=== PATIENT | female | born 1965 | race African-American/Black ===

== ENCOUNTER 2019-06-02 10:22 | Observation (INO) ==
[2019-06-02] MEDS ORDERED: ASPIRIN PO ONE (10:28)
[2019-06-02 10:53] LABS: BASO# 0.02 X1000 (0.0-0.2); BASO% 0.2 % (0.0-0.8); EOS# 0.12 X1000 (0.0-0.7); HEMATOCRIT 41.1 % (37.0-47.0); HEMOGLOBIN 12.8 g/dL (12.0-16.0); IMM GRAN# 0.02 X1000 (0.0-0.04); IMM GRAN% 0.2 % (0.0-0.5); LYMPH# 4.94 X1000 (1.2-3.4); LYMPH% 41.8 % (20.5-51.1); MCH 25.9 PG (27-31); MCHC 31.1 g/dL (33-37); MONO% 5.1 % (1.7-9.3); MPV 11.9 FL (7.4-10.4); NEUT# 6.11 X1000 (1.4-6.5); NEUT% 51.7 % (42.2-75.2); PLT 302 X1000 (130-400); RBC 4.95 XMIL (4.2-5.4); RDW 13.2 % (11.5-14.5); WBC 11.81 X1000 (4.8-10.8)
[2019-06-02] MEDS ORDERED: LOPRESSOR IV ONE (10:54)
[2019-06-02 11:14] LABS: INR 0.91; PROTIME 12.7 Seconds (11.0-16.0)
[2019-06-02 11:15] LABS: PTT 31.9 Seconds (22.3-41.8)
--- NOTE | 2019-06-02 11:15 | Diag Imaging Result Doc PS360 ---
EXAM: CHEST-2 VIEWS 06/02/2019 HISTORY: cp TECHNIQUE: PA and lateral chest COMMENT: There is no evidence of acute cardiac or pulmonary disease. Compared to 12/21/2017 there has been no significant change. IMPRESSION: No acute disease. Electronically signed by Wesly Amaral 06/02/2019 11:13 AM
[2019-06-02 11:17] LABS: AGAP 15; ALBUMIN 4.6 g/dL (3.5-5.0); ALKALINE PHOSPHATASE 82 U/L (32-104); BUN 9 mg/dL (8-22); CALCIUM 10.3 mg/dL (8.8-10.2); CHLORIDE 101 mmol/L (98-107); COSMO 285; CREATININE 0.6 mg/dL (0.5-0.9); ESTIMATED GFR > 60; GLUCOSE 225 mg/dL (70-104); GOT 35 U/L (10-30); GPT 24 U/L (10-36); POTASSIUM 4.3 mmol/L (3.5-5.1); SODIUM 140 mmol/L (136-145); TCO2 24 mmol/L (25-35); TOTAL PROTEIN 8.6 g/dL (6.3-8.3)
[2019-06-02 11:18] LABS: CK PROFILE 176 U/L (24-173)
--- NOTE | 2019-06-02 11:24 | EKG Report ---
Test Performed on : 06/02/2019 10:37:06 AM Test Reason : cp Blood Pressure : / mmHG Vent. Rate : 133 BPM Atrial Rate : 133 BPM P-R Int : 186 ms QRS Dur : 088 ms QT Int : 352 ms P-R-T Axes : 086 003 -18 degrees QTc Int : 523 ms Sinus tachycardia. Possible Left atrial enlargement ST & T wave abnormality, consider inferior ischemia Abnormal ECG When compared with ECG of 30-MAR-2019 08:56, ST now depressed in Anterolateral leads Unconfirmed Result
[2019-06-02 11:37] LABS: CK-MB 5.31 ng/mL (0.0-5.0)
--- NOTE | 2019-06-02 12:51 | PROVIDER DOCUMENTATION ---
This chart was entered by Alcira Alfred Scribe, acting as scribe for Ander Jackson MD. HPI-Chest Pain - General Chief Complaint: Chest Pain Stated Complaint: CHEST PAIN Time Seen by Provider: 06/02/19 10:51 Source: patient Allergies/Adverse Reactions: Patient Allergies Allergy/AdvReac Type Severity Reaction Status Date / Time No Known Drug Allergies Allergy Unknown Verified 06/02/19 10:27 Home Medications: Home Medication List Medication Instructions Recorded Confirmed Last Taken Type Metformin [Glucophage] 500 mg PO BID 03/16/14 06/02/19 01/22/17 08:00 History Losartan Potassium [Cozaar] 100 mg PO DAILY 12/21/17 06/02/19 Unknown History Amlodipine Besylate 5 mg PO DAILY 06/02/19 06/02/19 Unknown History Glipizide 5 mg PO DAILY 06/02/19 06/02/19 Unknown History ROSUVAstatin [Crestor] 10 mg PO DAILY 06/02/19 06/02/19 Unknown History - History of Present Illness-CP Nature of Presenting Problem: 54 yobf presents to the ed with c/o chest pain, sob acute onset 0230am this morning. pt sts pain has improved buit is still present. pt is nontoxic in appearance Location: reports: other (left anterior) Chest Pain Radiation: reports: no radiation Quality of Pain: reports: tightness Severity in ED: moderate Onset/Duration: this morning (0230) Timing: still present, improving, intermittent Context/Activities at Onset: reports: light activity Modifying Factors: improves with: nothing Associated Symptoms: reports: denies symptoms Nitro Today/Relief: no nitro taken today Aspirin Treatment Today: 325 mg x 1, provided by ED Prior Chest Pain/Cardiac Workup: reports: no prior chest pain Similar Symptoms Previously?: No Recently Seen Here or By Another Healthcare Provider: No Review of Systems - Adult - REVIEW OF SYSTEMS - ADULT Constitutional: denies: chills, fever Eyes: reports: no symptoms reported Ears, Nose, Mouth & Throat: reports: no symptoms reported Cardiovascular: reports: see HPI, chest pain. denies: palpitations, syncope Respiratory: reports: shortness of breath. denies: cough, wheezing Gastrointestinal: denies: diarrhea, nausea, vomiting Genitourinary: reports: no symptoms reported Musculoskeletal: reports: no symptoms reported Integumentary: reports: no symptoms reported Neurological: denies: dizziness/vertigo, headache/migraines Psychiatric: reports: no symptoms reported Endocrine: reports: no symptoms reported Hematologic/Lymphatic: reports: no symptoms reported Allergic/Immunologic: reports: no symptoms reported All Other Systems: Reviewed and Negative Past History - Adult - PAST MEDICAL HISTORY-ADULT Review of Records: reports: Old Records Reviewed, Nursing Assessment Review, Medications Reviewed, Social history reviewed & non-contributory. Major Childhood Illnesses: reports: denies history Cardiovascular: reports: HTN Respiratory: reports: denies history Gastrointestinal: reports: GERD Obstetrical/Gynecological: reports: denies history Genitourinary: reports: denies history Musculoskeletal: reports: denies history Neurological: reports: denies history Psychiatric: reports: denies history Endocrine/Immune: reports: Diabetes Diabetes Type: Type 2 Diabetes controlled by:: PO Meds Other Conditions: reports: denies history - PRIOR SURGERIES/PROCEDURES Surgical/Procedure History: reports: appendectomy, hysterectomy, joint replacement - PRIOR HOSPITALIZATIONS Prior Hospitalizations: reports: none - IMMUNIZATION STATUS Childhood Immunizations: See Nurse Assessment Flu Vaccine: See Nurse Assessment - FAMILY HISTORY Family History: reviewed, not pertinent, CAD over 55 yo - SOCIAL HISTORY Smoking: denies Substance Use: denies Living Situation: family Physical Exam-General - PHYSICAL EXAM-ADULT Initial Vital Signs Reviewed: Yes (BP-162/109 HR-131) - CONSTITUTIONAL General Appearance: appears well, alert, mild distress (cp has improved but still present), obese - EYES Eyes: PERRL/EOMI, pink conjunctivae - HEAD, EARS, NOSE, MOUTH & THROAT HENMT: moist mucous membranes, normal ENT inspection - NECK Neck: non-tender, full range of motion, supple, normal inspection - RESPIRATORY Respiratory: chest non-tender, lungs clear, normal breath sounds - CARDIOVASCULAR Cardiovascular: normal peripheral pulses, tachycardia (131) - CHEST (BREASTS) Chest/Breast: deferred - GASTROINTESTINAL (ABDOMEN) Abdominal Exam: normal bowel sounds, non tender, soft - GENITOURINARY Female Genitalia/Pelvic Exam: deferred Rectal Exam: deferred Hemoccult Exam: deferred - LYMPHATIC Lymphatic: no adenopathy - MUSCULOSKELETAL Back Exam: normal inspection, no CVA tenderness, no vertebral tenderness Extremity: normal range of motion, non-tender, normal gait, normal inspection - SKIN Integumentary: normal color, normal turgor, warm/dry - NEUROLOGIC Neurologic: grossly normal - PSYCHIATRIC Psych/Mental Status: normal mood/affect, normal thought content, normal thought process, oriented x 3 - HEART Score HEART Score: History: Moderately Suspicious HEART Score: ECG: Non-Specific Repolarization Disturbance/LBBB/PM HEART Score: Age: 45-65 Years HEART Score: Risk Factors for Atherosclerotic Disease: 1 or 2 Risk Factors HEART Score: Troponin: < or = Normal Limit Total HEART Score:: 4 Progress - PLAN OF CARE/RESULTS Progress/Plan/Lab Results: Vital Signs - 8 hr 06/02/19 10:24 06/02/19 11:16 06/02/19 11:34 Temperature 97.9 F Pulse Rate 133 H 103 H 98 H Respiratory Rate 18 19 23 Blood Pressure 153/101 142/99 133/93 O2 Sat by Pulse Oximetry 99 99 97 Laboratory Results - last 24 hr 06/02/19 06/02/19 06/02/19 10:41 10:41 10:41 WBC 11.81 H RBC 4.95 Hgb 12.8 Hct 41.1 MCV 83.0 MCH 25.9 L MCHC 31.1 L RDW Std Deviation 13.2 Plt Count 302 MPV 11.9 H Immature Gran % (Auto) 0.2 Neut % (Auto) 51.7 Lymph % (Auto) 41.8 [place] % (Auto) 5.1 Eos % (Auto) 1.0 Baso % (Auto) 0.2 Immature Gran # (Auto) 0.02 Neut # (Auto) 6.11 Lymph # (Auto) 4.94 H [place] # (Auto) 0.60 H Eos # (Auto) 0.12 Baso # (Auto) 0.02 PT INR PTT (Actin FS) D-Dimer, Quantitative Sodium 140 Potassium 4.3 Chloride 101 Carbon Dioxide 24 L Anion Gap 15 BUN 9 Creatinine 0.6 Estimated GFR/1.73 m2 > 60 BUN/Creatinine Ratio 15 Glucose 225 H Calculated Osmolality 285 Calcium 10.3 H Total Bilirubin 0.30 AST 35 H ALT 24 Alkaline Phosphatase 82 Creatine Kinase 176 H Creatine Kinase Index 3.0 H CK-MB (CK-2) 5.31 H Troponin T [id number] Pept 189 Total Protein 8.6 H Albumin 4.6 Globulin 4.0 Albumin/Globulin Ratio 1.0 06/02/19 06/02/19 06/02/19 10:41 10:41 10:41 WBC RBC Hgb Hct MCV MCH MCHC RDW Std Deviation Plt Count MPV Immature Gran % (Auto) Neut % (Auto) Lymph % (Auto) [place] % (Auto) Eos % (Auto) Baso % (Auto) Immature Gran # (Auto) Neut # (Auto) Lymph # (Auto) [place] # (Auto) Eos # (Auto) Baso # (Auto) PT 12.7 INR 0.91 PTT (Actin FS) 31.9 D-Dimer, Quantitative 0.19 Sodium Potassium Chloride Carbon Dioxide Anion Gap BUN Creatinine Estimated GFR/1.73 m2 BUN/Creatinine Ratio Glucose Calculated Osmolality Calcium Total Bilirubin AST ALT Alkaline Phosphatase Creatine Kinase Creatine Kinase Index CK-MB (CK-2) Troponin T 0.016 Rld-[id number]-Hwaqvkixwvc Pept Total Protein Albumin Globulin Albumin/Globulin Ratio Orders Category Date Time Status Cardiac Monitoring DIRECTED Care 06/02/19 10:29 Active Oxygen Therapy- ED Nursing DIRECTED Care 06/02/19 10:29 Active Saline Loc NOW Care 06/02/19 10:29 Active CHEST-2 VIEWS [RAD] Stat Exams 06/02/19 10:29 Completed CBC WITH ELECTRONIC DIFF [HEME] Stat Lab 06/02/19 10:41 Completed CK PROFILE [SP CHEM] Stat Lab 06/02/19 10:41 Completed COMPREHENSIVE METABOLIC PANEL [CHEM] Stat Lab 06/02/19 10:41 Completed D-DIMER [COAG] Stat Lab 06/02/19 10:41 Completed PRO B-NATRIURETIC PEPTIDE Stat Lab 06/02/19 10:41 Completed PROTIME WITH INR [COAG] Stat Lab 06/02/19 10:41 Completed PTT [COAG] Stat Lab 06/02/19 10:41 Completed TROPONIN T Stat Lab 06/02/19 10:41 Completed Aspirin Med 06/02/19 10:28 Discontinued 325 mg PO NOW ONE Metoprolol [Lopressor] Med 06/02/19 10:54 Discontinued 5 mg IV NOW ONE CP/SOB/Palp >45 yrs of Age Stat Oth 06/02/19 10:28 Ordered EKG [EKG] Stat Ther 06/02/19 10:29 Draft Result Diagrams: 06/02/19 10:41 06/02/19 10:41 - REASSESSMENT Reassessment #1 Time Reassessed: 11:22 Status: improving (HR, BP AND CP MUCH BETTER WITH LOPRESSOR 5MG IV.) - EKG 1 Time of EKG reading by physician:: 10:37 EKG Read and Signed by:: Ander Jackson EKG Interpretation (*Must complete 3 of following elements*): Abnormal Rate: 133 Rhythm: sinus tachycardia [place]: normal QRS: other (possible left atrial enlargement) RI Interval: normal Comments: st and t wave abnormality, consider inferior ischemia - XRAY 1 XRAY: Bilateral XRAY Study: Chest Impression: See EMR Report (EXAM: CHEST-2 VIEWS 06/02/2019 HISTORY: cp TECHNIQUE: PA and lateral chest COMMENT: There is no evidence of acute cardiac or pulmonary disease. Compared to 12/21/2017 there has been no significant change. IMPRESSION: No acute disease. Electronically signed by Wesly Amaral 06/02/2019 11:13 AM 06/02/19 1113 Interpreting Physician: Wesly Amaral MD Dictated Date/Time: 06/02/19 1112 cc: Ander Jackson MD; Viky Newberry MD) - CONSULTS/PCP/HOSPITALIST Notification #1 *Consult/PCP/Hospitalist*: DR CARPIO Time Discussed: 12:46 Consult Disposition: Admit Departure - Departure Date of Disposition Decision: 06/02/19 Time of Disposition Decision: 12:46 DIAGNOSIS: Chest pain, HTN (hypertension), Sinus tachycardia, Diabetes Disposition: ADMITTED INPATIENT 09 Certified Medical Emergency: Emergent Condition: Stable Additional Instructions: ED Follow Up Instructions: You have been treated by a care provider in the Emergency Department. These instructions are being provided to you so you can have an understanding of how to care for yourself upon discharge. Upon discharge from the Emergency Department, you are responsible for making arrangements for follow-up care by a physician of your choice. Take all prescribed medications as directed. Return to the Emergency Department immediately for any new or worsening symptoms. You may call the Physician Referral phone number at [phone] to obtain a list of Physicians who are taking new patients. Referrals and Follow-Ups: Viky Newberry MD [Primary Care Provider] - - Critical Care Note This patient required my direct & personal management of CC.: No Attestation - Physician/ MARTY Attestation The physician spent face to face time with patient:: Yes Advanced Practice Provider documentation review:: Supervising physician onsite and consulted in the evaluation and care of this patient. The physician did have a face to face encounter with the patient. This chart was documented by the indicated scribe, (Alcira Alfred Scribe) and accurately reflects the services I performed and decisions made by me, Ander Jackson MD, as attested by the provider's signature.
[2019-06-02 14:50] LABS: CK INDEX 4.2 (0.0-2.5); CK-MB 7.44 ng/mL (0.0-5.0)
[2019-06-02] MEDS ORDERED: ZOFRAN IV PRN (14:53)
[2019-06-02] MEDS ORDERED: TYLENOL PO PRN (14:53)
--- NOTE | 2019-06-02 16:48 | HISTORY AND PHYSICAL ---
PRIMARY CARE PROVIDER: Dr. Viky Newberry. CHIEF COMPLAINT: Chest pressure and shortness of breath. HISTORY OF PRESENT ILLNESS: Ms. 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 She did have a right arm that was aching at that time, diaphoresis but she reports that she has diaphoresis all the time so she was unsure if it was more than her usual. There was some associated nausea, nothing made the pressure or shortness of breath better or worse. It has since resolved, and there was no dizziness. No palpitations. She did report being put on some new medication with Crestor, Norvasc, and vitamin D3 as well as glipizide. Over the past week, workup in the ED showed a troponin of 0.016, and a second troponin of 0.044. CK, CKI and CK-MB are all slightly elevated. The AST is slightly up at 35. We will continue to trend her cardiac enzymes, make her n.p.o. after midnight, set her up for a stress test. Again, she is currently chest pain free. Hold off on her statin given her elevation and liver and CKs. Initiate her on IV fluids. REVIEW OF SYSTEMS: Twelve-point review of systems completely negative except for those mentioned in HPI. PAST MEDICAL HISTORY: 1. Vou-amkiukr-fxmqnxbqz diabetes mellitus orally controlled just started on glipizide. 2. Hypertension, just started on Norvasc. She has been taking Losartan. 3. Hyperlipidemia. It was just started on Crestor a week ago. 4. Vitamin D deficiency just initiated on vitamin D3. PAST SURGICAL HISTORY: 1. Appendectomy. 2. Partial hysterectomy. 3. Tubal ligation. 4. Left knee scope. FAMILY HISTORY: Mother with diabetes. Father from cancer related asbestosis. Sisters with hypertension. SOCIAL HISTORY: She is . She lives with her . 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 No alcohol, tobacco, or illicit drug use. Children are healthy. HOME MEDICATIONS: 1. Losartan. 2. Norvasc. 3. Crestor. 4. Vitamin D3. 5. Metformin. 6. Glipizide. ALLERGIES: No known drug allergies. PHYSICAL EXAMINATION: VITAL SIGNS: Temperature 98 degrees, heart rate 104, respirations 18, blood pressure 144/86, and O2 is 100% on room air. GENERAL: Ms. Christensen is a pleasant 54-year-old female who is lying on the right side in the bed in no acute distress. HEENT: Atraumatic, normocephalic. PERRL. NECK: Supple. Trachea midline. CARDIOVASCULAR: Tachy. S1, S2 appreciated. No murmurs, gallops, or rubs noted. RESPIRATORY: Lung sounds clear bilaterally. GI: Soft, nontender, and nondistended. Positive bowel sounds 4 quadrants. EXTREMITIES: Lower extremities were negative for edema. Bilateral pedal pulses are palpable. NEUROLOGIC: No focal deficits noted. DIAGNOSTICS AND LABORATORY DATA: As per HPI. ASSESSMENT AND PLAN: 1. Chest pain rule out. We will continue to trend her cardiac enzymes. We will check a stress test, echocardiogram, and NPO after midnight. Continue full dose aspirin. 2. Sinus tachycardia. The patient reports she has been asked in the past if her heart rate always ran high. We will continue to monitor. 3. Hypertension. Patient is on losartan, and recently started on Norvasc a week ago. 4. Hyperlipidemia, recently started on Crestor. We will hold that secondary to her elevated AST as well as CK's. 5. Jvt-xmsnzmo-oobznaaut diabetes mellitus. We will hold her oral medications, and place her on sliding scale with pattern blood sugars. 6. Further recommendation to follow physician evaluation, laboratory and diagnostic data. Dictated by PANCHO Sellers for Judson Mckee MD cc: MD Viky Mir
--- NOTE | 2019-06-02 17:16 | EKG Report ---
Test Performed on : 06/02/2019 3:38:21 PM Test Reason : CHEST PAIN Blood Pressure : / mmHG Vent. Rate : 108 BPM Atrial Rate : 108 BPM P-R Int : 136 ms QRS Dur : 090 ms QT Int : 374 ms P-R-T Axes : 033 011 -09 degrees QTc Int : 501 ms Sinus tachycardia. Nonspecific ST and T wave abnormality Abnormal ECG When compared with ECG of 02-JUN-2019 10:37, (Unconfirmed) No significant change was found Confirmed by Jey Acosta MD ([id number]) on 06/03/2019 9:11:54 PM
[2019-06-02] MEDS: HUMALOG (PARKWAY) SUBQ SCH ×2 (18:15→21:54)
[2019-06-02] MEDS: NS 1,000 ML IV SCH (18:15)
--- NOTE | 2019-06-02 19:24 | HISTORY AND PHYSICAL ---
ADDENDUM: Patient seen and examined by myself. Full note dictated and discussed with nurse practitioner. Patient presented to the hospital with chest pain. Notes that she had similar pain a couple years ago. She did have a stress test at that point, everything was negative. She does have diabetes. We are going to admit her to the hospital. Follow her blood sugars, blood pressures, rule out for an ME and will follow. cc: Judson Mckee MD
--- NOTE | 2019-06-02 21:33 | ECHO REPORT ---
ORDER DATE: 06/02/2019 MEASUREMENTS: 1. Septal thickness 1.2. 2. Left ventricular internal diameter in diastole 4.4. 3. Posterior wall thickness 1.2. 4. Aortic root 2.7. 5. Left atrium 4.0. SUMMARY: 1. Technically difficult study due to limited acoustic window quality. 2. Aortic valve is trileaflet and opens normally on 2-dimensional images. Peak gradient across the aortic valve is less than 10 mmHg. Mitral, tricuspid, and pulmonic valves are without evidence of structural abnormality with mild mitral regurgitation. Aortic root is normal in size. 3. Normal left ventricular chamber size with mild concentric left ventricular hypertrophy demonstrated. The estimated left ventricular ejection fraction is approximately 45% in the setting of mild global hypokinesis. Left atrium is mildly enlarged. Right atrium and right ventricle are normal in size with grossly preserved right ventricular systolic function. 4. No pericardial effusion. 5. Appearance of inferior vena cava suggests normal central venous pressure. CONCLUSIONS: 1. Technically difficult study. 2. Mild mitral regurgitation. 3. Mild concentric left ventricular hypertrophy with estimated left ventricular ejection fraction of approximately 45%. 4. Mild left atrial enlargement. cc: Bob Clark MD
--- NOTE | 2019-06-03 05:42 | EKG Report ---
Test Performed on : 06/03/2019 05:31:24 AM Test Reason : cp radiating to right arm Blood Pressure : / mmHG Vent. Rate : 104 BPM Atrial Rate : 104 BPM P-R Int : 134 ms QRS Dur : 090 ms QT Int : 374 ms P-R-T Axes : 053 010 -38 degrees QTc Int : 491 ms Sinus tachycardia. Possible Left atrial enlargement Nonspecific ST and T wave abnormality Abnormal ECG When compared with ECG of 02-JUN-2019 15:38, (Unconfirmed) No significant change was found Confirmed by Jey Acosta MD ([id number]) on 06/03/2019 9:11:42 PM
[2019-06-03 05:48] LABS: BASO# 0.02 X1000 (0.0-0.2); BASO% 0.1 % (0.0-0.8); EOS% 1.4 % (0.0-10.0); HEMATOCRIT 38.8 % (37.0-47.0); HEMOGLOBIN 12.1 g/dL (12.0-16.0); IMM GRAN# 0.02 X1000 (0.0-0.04); IMM GRAN% 0.1 % (0.0-0.5); LYMPH# 6.33 X1000 (1.2-3.4); LYMPH% 45.1 % (20.5-51.1); MCH 25.7 PG (27-31); MCHC 31.2 g/dL (33-37); MCV 82.6 FL (81-99); MONO# 0.84 X1000 (0.11-0.59); MPV 11.9 FL (7.4-10.4); NEUT# 6.64 X1000 (1.4-6.5); NEUT% 47.3 % (42.2-75.2); PLT 306 X1000 (130-400); RDW 13.1 % (11.5-14.5); WBC 14.05 X1000 (4.8-10.8)
[2019-06-03 06:09] LABS: AGAP 12; ALBUMIN 4.1 g/dL (3.5-5.0); ALKALINE PHOSPHATASE 79 U/L (32-104); BUN 9 mg/dL (8-22); CALCIUM 9.7 mg/dL (8.8-10.2); CHLORIDE 102 mmol/L (98-107); CHOLESTEROL 103 mg/dL (0-200); COSMO 279; CREATININE 0.5 mg/dL (0.5-0.9); ESTIMATED GFR > 60; GLUCOSE 218 mg/dL (70-104); GOT 25 U/L (10-30); GPT 18 U/L (10-36); HDL 38 mg/dL (45-65); LDL 40 mg/dL; MAGNESIUM 1.5 mg/dL (1.5-2.7); POTASSIUM 3.9 mmol/L (3.5-5.1); SODIUM 137 mmol/L (136-145); TCO2 23 mmol/L (25-35); TOTAL PROTEIN 7.6 g/dL (6.3-8.3); TRIGLYCERIDES 125 mg/dL (35-135); VLDL 25 mg/dL
[2019-06-03] MEDS: HUMALOG (PARKWAY) SUBQ SCH ×4 (06:09→21:17)
[2019-06-03] MEDS: PRILOSEC PO SCH (06:09)
[2019-06-03] MEDS: NS 1,000 ML IV SCH (06:09)
[2019-06-03 06:21] LABS: HEMOGLOBIN A1C 10.9 % (4.8-6.0)
[2019-06-03] MEDS ORDERED: LEXISCAN ONE (10:00)
[2019-06-03] MEDS: ASPIRIN PO SCH (14:58)
--- NOTE | 2019-06-03 17:09 | Diag Imaging Result Document ---
PROCEDURE NAME: MYOCARDIAL PERF SCAN, STR/REST - 06/03/2019 STUDY: Rest/stress Lexiscan myocardial perfusion study. INDICATION: Chest pain. Abnormal EKG. DESCRIPTION: The patient received a resting injection of technetium 99 sestamibi 12.4 mCi. Multiple tomographic views of the cardiac structures were obtained at rest. Subsequently, the patient underwent Lexiscan infusion of 0.4 mg of Lexiscan infused. At peak infusion, injected with technetium 99 sestamibi 37.5 mCi. Multiple tomographic views of the cardiac structures were obtained following the completion of the protocol. SUMMARY OF THE ELECTROCARDIOGRAPHIC PORTION OF THE STUDY: Resting ECG shows sinus rhythm, rate of 105 beats per minute. Resting blood pressure 129/85. During the protocol, the heart rate increased to 123 beats per minute. Blood pressure went up to 136/86. The resting ECG showed sinus rhythm with sinus tachycardia and a diffuse repolarization abnormality with a downsloping ST segment in inferior leads. Peak infusion ECG showed the same. There was some exaggeration of baseline abnormality. No significant changes. The patient reported no chest pain, shortness of breath, or palpitations. Following the completion of the test, the heart rate and blood pressure returned back to their baseline. In summary, the electrocardiographic response to infusion of Lexiscan is nonspecific/inconclusive due to the presence of baseline abnormality. SUMMARY OF THE MYOCARDIAL PERFUSION PORTION OF THE STUDY: Poststress tomographic views of the left ventricle showed a moderately severe, moderately extensive basal to mid inferolateral defect. The rest images showed that this defect is fixed. Polar plots reveal the same. This is a scintigraphic indication of inferolateral scar of moderate extent. The scar is probably of partial thickness. It is probably worse towards the basal aspect of the inferolateral wall. No ischemia noted. Gated SPECT showed ejection fraction of 38% using the [employer] protocol and 43% using the Myometrix protocol. There is indication of hypokinesis of the inferolateral wall. The volumes are slightly generous. The lung/heart ratio is normal, estimated at 0.38. TID is 1.01. SUMMARY: This study shows: 1. Abnormal resting electrocardiogram with a nonspecific response or inconclusive response to infusion of Lexiscan. 2. Abnormal poststress myocardial perfusion scan. There is scintigraphic evidence of an inferolateral scar of moderate extent, probably of partial thickness. No ischemia noted. 3. Decreased ejection fraction estimated to be in the range of 38% to 43% with impairment of the inferolateral wall. Clinical correlation is recommended. The study suggests increased risk for ischemic events. cc: Glen Portillo MD
[2019-06-04] MEDS: PRILOSEC PO SCH (06:51)
[2019-06-04] MEDS: HUMALOG (PARKWAY) SUBQ SCH ×3 (06:51→17:17)
[2019-06-04] MEDS ORDERED: CRESTOR PO SCH (09:00)
[2019-06-04] MEDS ORDERED: COZAAR PO SCH (09:00)
[2019-06-04] MEDS ORDERED: GLUCOTROL PO SCH (09:00)
--- NOTE | 2019-06-04 09:04 | DISCHARGE SUMMARY ---
ADMISSION DATE: 06/02/2019 DISCHARGE DATE: DISCHARGE ADDENDUM: Patient seen and examined by myself. Full note dictated and discussed with nurse practitioner. Patient presented to the hospital with chest pain and sinus tachycardia as well as hypertension, hyperlipidemia. She has known diabetes. She did have a stress test several years ago. She thankfully ruled out for an MO. She underwent stress testing while in the hospital. All of her symptoms have resolved and therefore going to discharge her home. cc: Judson Mckee MD
[2019-06-04] MEDS: GLUCOPHAGE PO SCH ×2 (09:32→17:16)
[2019-06-04] MEDS: ASPIRIN PO SCH (09:32)
[2019-06-04] MEDS ORDERED: TOPROL XL PO SCH (13:45)
[2019-06-04] MEDS ORDERED: CRESTOR PO ONE (13:45)
--- NOTE | 2019-06-04 14:06 | CARDIOLOGY CONSULTATION ---
DATE: 06/04/2019 CHIEF COMPLAINT ON PRESENTATION: Chest pressure, shortness of breath. HISTORY OF PRESENT ILLNESS: Ms. Christensen is a 54-year-old black female with a history of hypertension, hyperlipidemia, and diabetes, who presented with a complaint of chest pressure that began while she was at rest; it lasted for around 30 minutes. There was no diaphoresis. She did report some arm discomfort. She has not had recurrence of the pain since admission. She has never had this symptom before. PAST MEDICAL HISTORY: Significant for: 1. Diabetes. 2. Hypertension. 3. Hyperlipidemia. 4. Vitamin D deficiency. SOCIAL HISTORY: She does not smoke. FAMILY HISTORY: Significant for hypertension. REVIEW OF SYSTEMS: A 10 system review of systems is noted for those things mentioned in HPI. PHYSICAL EXAMINATION: Vital Signs: She is afebrile. Her heart rates have been in the 90s to low 100s. Her blood pressure is 134/85. General: She is in no acute distress. HEENT: Oropharynx is moist. Normal dentition. Eye examination shows pink conjunctivae, white sclerae. Neck: Examination shows no obvious thyromegaly or thyroid tenderness. Cardiovascular: She sounds to be in a regular rate and rhythm. She has no murmur. She has no S3. She has no lower extremity edema. Chest: Exam is clear bilaterally. She has no increased work of breathing. Abdomen: Soft, nontender, nondistended. She has no obvious organomegaly. Skin: Exam is warm and dry throughout without any rashes. Neurological: She is moving all extremities well. She has no lateralizing deficits. PERTINENT DATA: Her initial EKG shows sinus rhythm. She has mild ST depression in the lateral leads. Subsequent EKG on the at 1538 hours shows sinus rhythm, again mild ST depression, possibly slightly improved, noted in the lateral leads. Final EKG on the at 0531 hours shows sinus rhythm, mild ST depression in the lateral leads, otherwise unremarkable. Echocardiogram shows a mild reduction in EF of 45%. Her myocardial perfusion scan demonstrated an EF of 38-43%. She has a fixed defect in the inferior lateral wall. Laboratory data demonstrates a white count of 14, hematocrit of 38, platelet count of 306. Sodium is 137, potassium 3.9, BUN is 9 and creatinine 0.5. Mag level is 1.5. Her MB is 7.4, which is elevated. Her troponin is 0.069. Her LDL was 40, HDL was 38. ASSESSMENT: Ms. Christensen is a 54-year-old female, who presents with the above complaints. PLAN: She has a reduced ejection fraction. She has a partial thickness fixed defect in the inferior lateral wall. She had some EKG changes, as well as an elevation in her MB. Considering her risk factors, I think it would be reasonable to evaluate her with cardiac catheterization prior to going home. I have made adjustments in her medications including amlodipine and Toprol, Toprol being added, amlodipine being increased. I correspondently reduced the losartan to [address] her on SQ lovenox and I have discussed the case with [facility]. They will work on making arrangements for transfer of the patient. She has been placed NPO with morning labs to be drawn. cc: Topher Christensen MD MTDD
[2019-06-04] MEDS ORDERED: LOVENOX SUBQ SCH (15:00)
[2019-06-04 17:05] VITALS: BP 144/79
--- NOTE | 2019-06-04 19:12 | PROGRESS NOTE ---
DATE: 06/03/2019 SUBJECTIVE: The patient states that she is feeling okay. OBJECTIVE: Temperature 98 degrees, pulse 115, respiratory 20, BP 160/69.General: The patient is awake, alert. She is in no respiratory distress. HEENT: Normocephalic. Neck supple. Cardiovascular: Regular rate. Chest clear. Abdomen soft. Extremities: Moves all extremities. Neurologic: No changes. ASSESSMENT: 1. Chest pain. 2. Abnormal Cardiolite stress test. 3. Noninsulin-dependent diabetes. 4. Hypertension. 5. Hyperlipidemia. PLAN: We had actually planned on sending the patient home. Unfortunately her stress test was abnormal. We are going to discuss with Cardiology and consult them. We will make further arrangements, as I do believe that she is going to need further workup. We will continue to follow. cc: Judson Mckee MD
--- NOTE | 2019-06-04 22:13 | DISCHARGE SUMMARY ---
ADMISSION DATE: 06/02/2019 DISCHARGE DATE: 06/04/2019 DISCHARGE DIAGNOSES: 1. Abnormal Cardiolite GXT with mainly fixed scar. 2. Diabetes with hyperglycemia. 3. Hypertension. 4. Hyperlipidemia. 5. Others. CONSULTATIONS: Cardiology. PROCEDURES: Cardiolite GXT. Please see full results. BRIEF HOSPITAL COURSE: The patient was admitted to the hospital with chest pain. She has a known history of diabetes, hypertension, hyperlipidemia. She denies any previous heart issues. Her stress test was abnormal as was her Cardiolite. Cardiology was consulted. They agreed that she needs further workup. She is going to be transferred to [place] for a left heart catheterization. cc: Judson Mckee MD
[2019-06-05] MEDS ORDERED: NORVASC PO SCH ×2 (09:00)
[2019-06-05] MEDS ORDERED: COZAAR PO SCH (09:00)
[2019-06-05] MEDS ORDERED: ASPIRIN PO SCH (09:00)
[2019-06-05] MEDS ORDERED: CRESTOR PO SCH (21:00)
== END 2019-06-04 16:30 | disposition short-term general hospital (02) ==
LOC: P.ED 10:22 → P.MEDSURG 10:22
PROVIDERS: ATTEND Family Medicine